=== PATIENT | female | born 1980 | race Two or more races ===

== ENCOUNTER 2016-12-02 12:26 | Emergency (ER) | payer SELFPAY ==
[~2016-12-02] VITALS: Ht 160 cm; Wt 61.4 kg
[2016-12-02] MEDS ORDERED: GABA-531 PO (12:53)
[2016-12-02] MEDS ORDERED: AMIT10TA6 PO (12:53)
[2016-12-02 13:09] VITALS: BP 105/82
== END 2016-12-02 13:40 | disposition home or self-care (01) ==
LOC: EMS 12:32
DX: G56.91 Unspecified mononeuropathy of right upper limb (principal); M62.830 Muscle spasm of back; M25.511 Pain in right shoulder
CPT/HCPCS: 99283